=== PATIENT | female | born 1935 | race Asian ===

== ENCOUNTER 2023-03-12 16:51 | Emergency (ER) | payer MEDICARE, OTHER ==
[~2023-03-12] VITALS: Ht 160 cm; Wt 63.5 kg
--- NOTE | 2023-03-12 17:02 | NUR ---
BIB DAUGHTER C/O BACK PAIN S/P GLF THAT HAPPENENED ON 03/10
--- NOTE | 2023-03-12 18:19 | NUR ---
COVID SWAB TAKEN AND SENT TO LAB
--- NOTE | 2023-03-12 18:58 | NUR ---
IV CATHERTER INSERTED LEFT HAND 22G
[2023-03-12 19:15] LABS: BASOPHILS % (AUTO) 0.3 % (0.0-2.0); EOSINOPHILS % (AUTO) 0.6 % (0.0-6.0); HEMATOCRIT 40 % (33-45); HEMOGLOBIN 12.9 g/dL (11.5-14.8); LYMPHOCYTES # (AUTO) 1.7 K/uL (0.8-4.8); LYMPHOCYTES % (AUTO) 22.9 % (20.0-44.0); MEAN CORPUSCULAR HGB CONC 32 g/dl (31.0-36.0); MEAN CORPUSCULAR VOLUME 91 fL (82-100); MONOCYTES # (AUTO) 0.5 K/uL (0.1-1.30); NEUTROPHILS # (AUTO) 5.3 K/uL (1.8-8.9); NEUTROPHILS % (AUTO) 70.2 % (43.0-81.0); PLATELET COUNT (AUTO) 256 K/uL (150-450); RED BLOOD CELL COUNT(AUTO) 4.38 MIL/uL (4.0-5.2); WHITE BLOOD COUNT (AUTO) 7.6 K/uL (4.3-11.0)
--- NOTE | 2023-03-12 19:20 | NUR ---
REPORT GIVEN TO NURSE BENITEZ FOR DENISE
--- NOTE | 2023-03-12 19:34 | NUR ---
DR. LOFTON AT BEDSIDE
[2023-03-12 19:40] LABS: POTASSIUM 3.6 mmol/L (3.5-5.1)
--- NOTE | 2023-03-12 20:08 | NUR ---
DR LOFTON ON THE PHONE W/ DR RODRIGEZ NEUROSURGEON
[2023-03-12] MEDS ORDERED: IBUP-1953 PO (20:17)
[2023-03-12] MEDS ORDERED: HYDR-3980 PO (20:17)
[2023-03-12] MEDS ORDERED: CALC3.7S BNOSTRILS (20:17)
[2023-03-12 20:35] VITALS: BP 125/71
--- NOTE | 2023-03-12 20:36 | NUR ---
Patient discharged to home in stable condition. Written and verbal after care instructions given. Patient verbalizes understanding of instruction.IV removed. Catheter intact and site benign. Pressure and 4x4 applied to site. No bleeding noted.
[2023-03-12 21:24] LABS: BILIRUBIN,URINE NEGATIVE (NEGATIVE); COLOR,URINE YELLOW (YELLOW); LEUKOCYTE ESTERASE ,URINE NEGATIVE (NEGATIVE); NITRITE, URINE NEGATIVE (NEGATIVE); PROTEIN,URINE 1+ mg/dl (NEGATIVE); UGLUCOSE NEGATIVE (NEGATIVE)
[2023-03-12 21:43] LABS: BACTERIA,URINE Few /HPF (None Seen); RBC,URINE 0-2 /HPF (0-2); SQUAMOUS EPITHELIAL CELL,UR Few /HPF (None Seen)
[2023-03-12 21:44] LABS: URINE AMORPHOUS URATE Moderate /HPF (None Seen)
== END 2023-03-12 20:36 | disposition home or self-care (01) ==
LOC: ER 16:53
DX: S32.050A Wedge compression fracture of fifth lumbar vertebra, initial encounter for closed fracture (principal); F03.90 Unspecified dementia, unspecified severity, without behavioral disturbance, psychotic disturbance, mood disturbance, and anxiety; Z20.822 Contact with and (suspected) exposure to COVID-19; W19.XXXA Unspecified fall, initial encounter; Y93.89 Activity, other specified; Y92.89 Other specified places as the place of occurrence of the external cause; Y99.8 Other external cause status
CPT/HCPCS: J7030 ×11; 36415; 71045-TC; 72131-TC; 72192-TC; 73552; 80048-TC; 81001; 85025-TC; C9803